=== PATIENT | female | born 2000 | race Caucasian/White ===

== ENCOUNTER 2022-09-13 10:56 | Day surgery (SDC) | payer OTHER ==
[2022-09-10 11:51] VITALS: BMI 16.6
[2022-09-13] MEDS ORDERED: DEXAMETHASONE SOD PHOSPHATE 4 MG/1 ML VIAL ONE ×2 (11:40→13:00)
[2022-09-13] MEDS ORDERED: LIDOCAINE HCL 2% (20ML MULTI-DOSE VIAL) ONE (11:40)
[2022-09-13] MEDS ORDERED: BUPIVACAINE HCL/PF 0.25% (2.5MG/ML) 10 ML VIAL ONE (11:40)
[2022-09-13] MEDS ORDERED: CEFAZOLIN 1 GM/D5W 1 GM/50 ML BAG IVPB ONE (13:00)
[2022-09-13] MEDS ORDERED: MIDAZOLAM HCL 2 MG/2 ML SINGLE DOSE VIAL ONE (13:11)
[2022-09-13] MEDS ORDERED: SUCCINYLCHOLINE CHLORIDE 200 MG/10 ML SYRINGE ONE (13:21)
[2022-09-13] MEDS ORDERED: oxyCODONE HCL 5 MG TABLET PO PRN (15:33)
[2022-09-13] MEDS ORDERED: ONDANSETRON 4 MG/2 ML VIAL IVPUSH PRN (15:33)
[2022-09-13] MEDS ORDERED: PROMETHAZINE HCL 25 MG/1 ML VIAL IVPB PRN (15:33)
[2022-09-13] MEDS ORDERED: ACETAMINOPHEN 1000 MG/100 ML BAG IVPB ONE (15:35)
[2022-09-13] MEDS ORDERED: LACTATED RINGERS SOLUTION 1,000 ML IV SCH (15:45)
[2022-09-13] MEDS ORDERED: FENTANYL CITRATE/PF 50 MCG/ML VIAL ONE (16:08)
[2022-09-13 16:57] VITALS: TEMP 98.7
[2022-09-13 17:01] VITALS: BP 112/64; PULSE 80; RESP 20
== END 2022-09-13 17:00 | disposition home or self-care (01) ==
LOC: FASU 10:56
PROVIDERS: ATTEND Podiatrist
PROC: 0QSP04Z Reposition Left Metatarsal with Internal Fixation Device, Open Approach (ICD-10-PCS; 2022-09-13)
PROC: 0QSP04Z Reposition Left Metatarsal with Internal Fixation Device, Open Approach (ICD-10-PCS; principal; 2022-09-13 13:41)
DX: M20.12 Hallux valgus (acquired), left foot (principal); M21.622 Bunionette of left foot
CPT/HCPCS: 28110; 28296; C1713; 81025; 88305-TC; 88311-TC; 94760

== ENCOUNTER 2023-02-22 11:30 | Emergency (ER) | payer OTHER ==
[2023-02-22 11:42] VITALS: BP 141/92; PULSE 68; RESP 18; TEMP 98.8; BMI 17.4
[2023-02-22] MEDS ORDERED: ACETAMINOPHEN 325 MG TABLET (FP) PO ONE (11:45)
[2023-02-22] MEDS ORDERED: METHOCARBAMOL 500 MG TABLET PO ONE (11:45)
[2023-02-22] MEDS ORDERED: KETOROLAC TROMETHAMINE 60 MG/2 ML VIAL IM ONE (11:45)
[2023-02-22] MEDS ORDERED: LIDOCAINE 5% TOPICAL PATCH TP ONE (11:46)
[2023-02-22] MEDS ORDERED: LIDOCAINE PATCH REMOVAL MC SCH (22:00)
== END 2023-02-22 12:55 | disposition home or self-care (01) ==
LOC: FER 11:30
PROC: 3E0233Z Introduction of Anti-inflammatory into Muscle, Percutaneous Approach (ICD-10-PCS; principal; 2023-02-22)
DX: M54.9 Dorsalgia, unspecified (principal); V49.50XA Passenger injured in collision with unspecified motor vehicles in traffic accident, initial encounter
CPT/HCPCS: 71045-TC-FY; 99284-25